=== PATIENT | male | born 1990 | race Hispanic/Latino ===

== ENCOUNTER 2021-08-17 22:15 | Emergency (ER) | payer OTHER ==
[~2021-08-17] VITALS: Ht 175.3 cm; Wt 77.1 kg
[2021-08-17 22:53] LABS: BASOPHILS % (AUTO) 0.4 % (0.0-5.0); EOSINOPHILS % (AUTO) 0.4 % (0.0-8.0); HEMATOCRIT 49.1 % (42-54); LYMPHOCYTES % (AUTO) 14.5 % (21.0-51.0); MEAN CORPUSCULAR HEMOGLOBIN 31.7 pg (27.0-33.0); MEAN CORPUSCULAR VOLUME 90.4 fL (79-99); MONOCYTES % (AUTO) 7.4 % (3.0-13.0); NEUTROPHILS % (AUTO) 76.9 % (40.0-77.0); PLATELET COUNT (AUTO) 244 K/uL (130-400); RED BLOOD CELL COUNT(AUTO) 5.43 MIL/uL (4.50-6.20); RED CELL DISTRIBUTION WIDTH 12.3 % (11.0-15.5); WHITE BLOOD COUNT (AUTO) 10.6 K/uL (4.8-10.8)
[2021-08-17] MEDS ORDERED: LORAZEPAM 1 MG TABLET PO ONE (23:00)
[2021-08-17 23:03] LABS: CARBON DIOXIDE 27 mmol/L (21-32); CHLORIDE 105 mmol/L (101-111); CREATININE 1.2 mg/dL (0.5-1.5); GLOMERULAR FILTR. RATE CALC 75 mL/min (>60); GLUCOSE,RANDOM 104 mg/dL (70-105); POTASSIUM 3.5 mmol/L (3.5-5.1); SODIUM SERUM 139 mmol/L (136-145); UREA NITROGEN, BLOOD 14 mg/dL (7-18)
[2021-08-17 23:08] LABS: ALANINE AMINOTRANSFERASE 35 U/L (12-78); ALBUMIN 4.1 g/dL (3.5-5.0); ASPARTATE AMINOTRANSFERASE 21 U/L (10-37); BILIRUBIN,TOTAL 0.4 mg/dL (0.2-1.0); TOTAL PROTEIN, SERUM 7.8 g/dL (6.0-8.3)
[2021-08-17 23:09] LABS: CRP QUANTITATIVE < 2.00 mg/L (0.00-9.0)
[2021-08-17] MEDS ORDERED: HYDR-3421 PO (23:27)
[2021-08-17 23:30] VITALS: BP 136/92
== END 2021-08-17 23:50 | disposition home or self-care (01) ==
LOC: EDH 22:15
DX: R07.89 Other chest pain (principal); F41.9 Anxiety disorder, unspecified; F32.A Depression, unspecified; Z79.899 Other long term (current) drug therapy
CPT/HCPCS: 36415; 71045; 80053; 84484; 85025; 86140; 93005

== ENCOUNTER 2024-10-03 17:33 | Emergency (ER) | payer SELFPAY ==
[~2024-10-03] VITALS: Ht 172.7 cm; Wt 120.2 kg
[~2024-10-03 17:33] MED LIST: HYDR-3421 PO
--- NOTE | 2024-10-03 18:35 | HMCIMG ---
LEFT KNEE RADIOGRAPHS - 3 VIEWS INDICATION: Pain COMPARISON: None FINDINGS: AP, lateral, and oblique views. No fracture or dislocation identified. No significant joint effusion is present. Overlying soft tissues appear normal. No radiopaque foreign body noted. IMPRESSION: No evidence for fracture or dislocation.
--- NOTE | 2024-10-03 18:35 | HMCIMG ---
LEFT CLAVICLE RADIOGRAPHS - 2 VIEWS INDICATION: Pain COMPARISON: None FINDINGS: No fracture or subluxation identified. Acromioclavicular and sternoclavicular joints are well maintained, without widening or subluxation. IMPRESSION: No evidence for fracture or subluxation.
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
[2024-10-03] MEDS ORDERED: IBUP-2070 PO (19:08)
[2024-10-03] MEDS ORDERED: CYCL10TA16 PO (19:08)
[2024-10-03] MEDS: acetaMINOPHEN 500 MG TABLET PO ONE (20:41)
[2024-10-03] MEDS: ketOROlac 60 MG VIAL (30MG/ML) IM ONE (20:42)
[2024-10-03 20:49] VITALS: BP 132/78; PULSE 98; RESP 18; TEMP 98; O2SAT 98
== END 2024-10-03 21:35 | disposition home or self-care (01) ==
LOC: EDH 17:33
DX: S80.02XA Contusion of left knee, initial encounter (principal); M25.512 Pain in left shoulder; R22.42 Localized swelling, mass and lump, left lower limb; Z98.890 Other specified postprocedural states; V43.52XA Car driver injured in collision with other type car in traffic accident, initial encounter; Y93.I9 Activity, other involving external motion; Y92.488 Other paved roadways as the place of occurrence of the external cause; Y99.8 Other external cause status
CPT/HCPCS: 99284; 73000; 73562; 96372; J1885; 99283